=== PATIENT | female | born 1965 | race African-American/Black ===

== ENCOUNTER 2018-08-15 12:54 | Emergency (ER) | payer MEDICAID ==
[~2018-08-15] VITALS: Ht 160 cm; Wt 59.0 kg
[2018-08-15 13:00] VITALS: BP 140/96
[2018-08-15] MEDS ORDERED: diphenhdrAMINE HCL 50 MG/1 ML VL IM ONE (13:15)
[2018-08-15] MEDS ORDERED: KETOROLAC TROMETH 60MG/2ML VIAL IM ONE (13:15)
== END 2018-08-15 15:08 | disposition home or self-care (01) ==
LOC: ER 12:54
DX: S29.012A Strain of muscle and tendon of back wall of thorax, initial encounter (principal); I10 Essential (primary) hypertension; M54.5 Low back pain; G89.29 Other chronic pain; F17.210 Nicotine dependence, cigarettes, uncomplicated; Z88.8 Allergy status to other drugs, medicaments and biological substances; Z59.0 Homelessness; X50.0XXA Overexertion from strenuous movement or load, initial encounter; Y93.89 Activity, other specified; Y99.8 Other external cause status; Y92.89 Other specified places as the place of occurrence of the external cause
CPT/HCPCS: 72070; 96372; 99283; J1200; J1885